=== PATIENT | male | born 1995 | race Two or more races ===

== ENCOUNTER 2017-01-03 03:47 | Emergency (ER) | payer SELFPAY ==
[~2017-01-03] VITALS: Ht 175.3 cm; Wt 74.2 kg
[2017-01-03 03:51] VITALS: BP 147/99
== END 2017-01-03 04:25 | disposition left against medical advice (07) ==
LOC: ED 04:15
DX: R21 Rash and other nonspecific skin eruption (principal); Z53.21 Procedure and treatment not carried out due to patient leaving prior to being seen by health care provider

== ENCOUNTER 2017-01-04 07:45 | Emergency (ER) | payer SELFPAY ==
[~2017-01-04] VITALS: Ht 175.3 cm; Wt 73.7 kg
[2017-01-04 07:46] VITALS: BP 139/92
== END 2017-01-04 08:31 | disposition home or self-care (01) ==
LOC: ED 08:25
DX: S50.861A Insect bite (nonvenomous) of right forearm, initial encounter (principal); X58.XXXA Exposure to other specified factors, initial encounter; Y93.89 Activity, other specified; Y92.89 Other specified places as the place of occurrence of the external cause; Y99.8 Other external cause status
CPT/HCPCS: 99283